=== PATIENT | male | born 1960 | race Caucasian/White ===

== ENCOUNTER 2022-05-19 16:09 | Emergency (ER) | payer BC, OTHER ==
[~2022-05-19 16:09] MED LIST: VIBRAMYCIN100 MG PO
[2022-05-19] MEDS ORDERED: INDOMETHACIN50 MG PO (18:37)
== END 2022-05-19 19:00 | disposition home or self-care (01) ==
LOC: ER1 16:09
DX: S93.402A Sprain of unspecified ligament of left ankle, initial encounter (principal); R03.0 Elevated blood-pressure reading, without diagnosis of hypertension; E11.9 Type 2 diabetes mellitus without complications; X50.9XXA Other and unspecified overexertion or strenuous movements or postures, initial encounter
CPT/HCPCS: 73610; 73630; 99283